=== PATIENT | female | born 1950 | race Caucasian/White ===

== ENCOUNTER 2022-05-23 09:54 | Emergency (ER) | payer MEDICARE, MEDICAID ==
[~2022-05-23] VITALS: Ht 167.6 cm; Wt 63.5 kg
[~2022-05-23 09:54] MED LIST: ANTIVERT/2525 MG PO; ASPIRIN CHEWABL81 M1 PO; CARAFATE1 G1 PO; CARDIZEM CD240 MG PO; CELEBREX200 MG PO; CIPRO250 MG PO; CIPRO500 MG PO; CIPROFLOXACIN500 MG PO; COZAAR100 MG PO; COZAAR50 MG PO; CRESTOR10 MG PO; CRESTOR20 MG PO; DARVOCET N 1001 TAB PO; DAYPRO600 M1 PO; DILTIAZEM HYDR240 M1 PO; DIOVAN80 MG PO; EES400 MG PO; EVISTA60 MG PO; FIORICET 325 MG1 TAB PO; FLEXERIL5 MG PO; Fiorinal,Butalb1 TAB PO; GABAPENTIN300 MG PO; HYDROCODONE BIT1 T11 PO; K-DUR 2020 MEQ PO; LEVAQUIN750 MG PO; LOPRESSOR25 MG PO; METOPROLOL50 MG PO; MOTRIN800 MG PO; NEURONTIN300 MG; NEURONTIN300 MG PO; NO LIST; NORVASC2.5 MG PO; OMEPRAZOLE40 MG PO; OSCAL,OYSTER S500 MG PO; PERCOCET 325 MG1 TA2 PO; PRAVACHOL40 MG PO; PRAVASTATIN SOD40 MG PO; PREDNISONE10 MG PO; PRILOSEC40 MG PO; PROAIR HFA0.09 MG/AC INH; PYRIDIUM200 MG PO; ROBAXIN750 MG PO; TRAMADOL HCL50 MG PO; TYLENOL ES500 MG PO; TYLENOL W/CODEI1 TA2 PO; TYLENOL325 M1 PO; ULTRAM100 MG PO; ULTRAM50 MG PO; VALIUM5 MG PO; VENTOLIN H0.09 MG/AC INH; VICODIN 5/500 505 MG PO; VICODIN 500 MG-1 TAB PO; ZETIA10 MG PO; ZITHROMAX Z PA250 MG PO; Zofran4 MG PO
[2022-05-23 10:03] VITALS: BP 132/86
[2022-05-23] MEDS ORDERED: DECADRON4 MG PO (11:40)
[2022-05-23] MEDS ORDERED: ORPHENADRINE C100 M1 PO (11:41)
== END 2022-05-23 12:25 | disposition home or self-care (01) ==
LOC: ED 09:54
DX: G89.29 Other chronic pain (principal); M54.50 Low back pain, unspecified; Z88.0 Allergy status to penicillin; Z88.8 Allergy status to other drugs, medicaments and biological substances; Z79.899 Other long term (current) drug therapy; Z90.49 Acquired absence of other specified parts of digestive tract; Z95.1 Presence of aortocoronary bypass graft

== ENCOUNTER 2022-10-22 16:30 | Emergency (ER) | payer OTHER, MEDICAID ==
[~2022-10-22] VITALS: Ht 160 cm; Wt 64.4 kg
[~2022-10-22 16:30] MED LIST changes: +DECADRON4 MG PO; +DOXYCYCLINE HY100 M3 PO; +Imdur SA60 MG PO; +LASIX40 MG PO; +METOPROLOL SUCC25 M2 PO; +ORPHENADRINE C100 M1 PO; +PERCOCET 5-3251 EACH PO; +PHARMASSURE V500 MCG PO; +VITAMIN D350 MC2 GT
[2022-10-22 17:28] LABS: BASO # 0.1 10*3/uL (0.0-0.1); EOS # 0.2 10*3/uL (0.0-0.4); EOS % 3.3 % (1.0-4.0); LYMPH # 1.5 10*3/uL (1.3-4.4); LYMPH % 25.2 % (27.0-41.0); MEAN CELL VOLUME 92.2 fl (81.0-99.0); MEAN CORPUSCULAR HGB 28.5 pg (27.0-31.0); MEAN CORPUSCULAR HGB CONC 30.9 g/dl (33.0-37.0); MEAN PLATELET VOLUME 10.7 fl (9.6-12.3); MONO # 0.6 10*3/uL (0.1-1.0); MONO % 9.5 % (3.0-9.0); NEUT # 3.6 10*3/uL (2.3-7.9); NEUT % 60.7 % (47.0-73.0); PLATELET COUNT AUTOMATED 190 10*3/uL (130-400); RED BLOOD COUNT 3.47 10*6/uL (4.10-5.10); RED CELL DISTRI WIDTH 15.8 % (0-14.5)
[2022-10-22 17:30] VITALS: BP 164/95
[2022-10-22 17:40] LABS: ACT PARTIAL THROMBO TIME 25.6 SECONDS (20.0-32.1)
[2022-10-22 17:50] LABS: ALKALINE PHOSPHATASE 167 U/L (46-116); BUN 27 mg/dl (9-23); CHLORIDE 114 mmol/L (98-107); LIPASE 46 U/L (12-53); POTASSIUM 4.4 mmol/L (3.4-5.1); SGPT/ALT 7 U/L (10-49)
[2022-10-22 18:29] LABS: BILIRUBIN Negative (Negative); BLOOD Negative (Negative); CLARITY Clear (Clear); COLOR Yellow (Yellow); GLUCOSE Negative (Negative); KETONE Negative (Negative); LEUKO ESTERASE Negative (Negative); NITRITE Negative (Negative); PH 5.5 (4.5-8.0); UROBILINOGEN 0.2 E.U./dl (0.0-1.0)
[2022-10-22 19:18] LABS: RBC 0-2 rbc/hpf (0-2); WBC 0-2 wbc/hpf (0-5)
== END 2022-10-22 22:38 | disposition home or self-care (01) ==
LOC: ED 16:30
PROVIDERS: Emergency Medicine
DX: N20.9 Urinary calculus, unspecified (principal); N17.9 Acute kidney failure, unspecified; D64.9 Anemia, unspecified; I71.40 Abdominal aortic aneurysm, without rupture, unspecified; Z88.0 Allergy status to penicillin; Z88.8 Allergy status to other drugs, medicaments and biological substances; Z88.6 Allergy status to analgesic agent; Z79.899 Other long term (current) drug therapy; Z90.49 Acquired absence of other specified parts of digestive tract; Z90.710 Acquired absence of both cervix and uterus; Z98.890 Other specified postprocedural states; F17.210 Nicotine dependence, cigarettes, uncomplicated

== ENCOUNTER 2022-11-10 11:51 | Emergency (ER) | payer OTHER ==
[~2022-11-10] VITALS: Wt 62.1 kg
[2022-11-10 12:07] VITALS: BP 183/94
[2022-11-10 13:27] LABS: BILIRUBIN Negative (Negative); BLOOD Negative (Negative); CLARITY Clear (Clear); COLOR Yellow (Yellow); GLUCOSE Negative (Negative); KETONE Negative (Negative); LEUKO ESTERASE Trace (Negative); NITRITE Negative (Negative); PH 5.5 (4.5-8.0); UROBILINOGEN 0.2 E.U./dl (0.0-1.0)
[2022-11-10 13:35] LABS: ALKALINE PHOSPHATASE 134 U/L (46-116); BUN 14 mg/dl (9-23); CHLORIDE 114 mmol/L (98-107); POTASSIUM 4.4 mmol/L (3.4-5.1); TOTAL PROTEIN 6.7 gm/dL (6.0-8.0)
[2022-11-10 13:37] LABS: SGPT/ALT < 7 U/L (10-49)
[2022-11-10 14:21] LABS: EOS # 0.1 10*3/uL (0.0-0.4); EOS % 3.4 % (1.0-4.0); LYMPH # 1.3 10*3/uL (1.3-4.4); LYMPH % 31.4 % (27.0-41.0); MEAN CELL VOLUME 94.2 fl (81.0-99.0); MEAN CORPUSCULAR HGB 28.5 pg (27.0-31.0); MEAN CORPUSCULAR HGB CONC 30.2 g/dl (33.0-37.0); MEAN PLATELET VOLUME 11.3 fl (9.6-12.3); MONO # 0.5 10*3/uL (0.1-1.0); MONO % 11.5 % (3.0-9.0); NEUT # 2.1 10*3/uL (2.3-7.9); NEUT % 52.5 % (47.0-73.0); PLATELET COUNT AUTOMATED 200 10*3/uL (130-400); RED BLOOD COUNT 3.62 10*6/uL (4.10-5.10); RED CELL DISTRI WIDTH 15.4 % (0-14.5); WHITE BLOOD COUNT 4.1 10*3/uL (4.8-10.8)
[2022-11-10 14:31] LABS: HEMATOCRIT 34.2 % (37.0-47.0)
[2022-11-10] MEDS ORDERED: FLOMAX0.4 MG PO (15:19)
== END 2022-11-10 16:32 | disposition home or self-care (01) ==
LOC: ED 11:51
PROVIDERS: Physician Assistant
DX: N20.0 Calculus of kidney (principal); I10 Essential (primary) hypertension; F41.9 Anxiety disorder, unspecified; F32.A Depression, unspecified; E78.00 Pure hypercholesterolemia, unspecified; K21.9 Gastro-esophageal reflux disease without esophagitis; M19.90 Unspecified osteoarthritis, unspecified site; Z88.0 Allergy status to penicillin; Z88.6 Allergy status to analgesic agent; Z88.8 Allergy status to other drugs, medicaments and biological substances; Z90.49 Acquired absence of other specified parts of digestive tract; Z90.710 Acquired absence of both cervix and uterus; Z98.890 Other specified postprocedural states; F17.210 Nicotine dependence, cigarettes, uncomplicated

== ENCOUNTER 2023-02-12 11:42 | Emergency (ER) | payer OTHER ==
[~2023-02-12] VITALS: Ht 167.6 cm; Wt 58.5 kg
[~2023-02-12 11:42] MED LIST changes: +AMLODIPINE BESY10 MG PO; +ATORVASTATIN CA20 M1 PO; +ATORVASTATIN CA40 M1 PO; +CLOPIDOGREL75 MG PO; +FLOMAX0.4 MG PO; +Lopressor25 MG PO; +OXYBUTYNIN5 MG PO; +PANTOPRAZOLE SO40 MG PO; +VANCOMYCIN HYDRO1 GM IV
[2023-02-12 13:38] LABS: HEMATOCRIT 29.7 % (37.0-47.0); MEAN CELL VOLUME 97.1 fl (81.0-99.0); MEAN CORPUSCULAR HGB 28.4 pg (27.0-31.0); MEAN CORPUSCULAR HGB CONC 29.3 g/dl (33.0-37.0); MEAN PLATELET VOLUME 10.9 fl (9.6-12.3); PLATELET COUNT AUTOMATED 185 10*3/uL (130-400); RED BLOOD COUNT 3.06 10*6/uL (4.10-5.10); RED CELL DISTRI WIDTH 15.2 % (0-14.5); WHITE BLOOD COUNT 9.9 10*3/uL (4.8-10.8)
[2023-02-12 13:42] LABS: MANUAL DIFF REFLEX YES
[2023-02-12 14:01] LABS: POTASSIUM 5.6 mmol/L (3.4-5.1)
[2023-02-12 14:04] LABS: TOTAL CELLS COUNTED 100 #CELLS
[2023-02-12 14:05] LABS: BURR CELLS FEW; OVALOCYTES FEW; PLATELET SUFFICIENCY NORMAL (NORMAL)
[2023-02-12 14:09] LABS: ACT PARTIAL THROMBO TIME 23.6 SECONDS (20.0-32.1)
[2023-02-12 17:46] VITALS: BP 118/69
== END 2023-02-12 18:30 | disposition short-term general hospital (02) ==
LOC: ED 11:42
PROVIDERS: Physician Assistant
DX: I24.9 Acute ischemic heart disease, unspecified (principal); I50.9 Heart failure, unspecified; I11.0 Hypertensive heart disease with heart failure; R77.8 Other specified abnormalities of plasma proteins; K21.9 Gastro-esophageal reflux disease without esophagitis; I13.0 Hypertensive heart and chronic kidney disease with heart failure and stage 1 through stage 4 chronic kidney disease, or unspecified chronic kidney disease; N18.9 Chronic kidney disease, unspecified; J44.9 Chronic obstructive pulmonary disease, unspecified; I25.10 Atherosclerotic heart disease of native coronary artery without angina pectoris; F41.9 Anxiety disorder, unspecified; F32.A Depression, unspecified; E78.00 Pure hypercholesterolemia, unspecified; Z95.5 Presence of coronary angioplasty implant and graft; Z88.0 Allergy status to penicillin; Z88.8 Allergy status to other drugs, medicaments and biological substances; Z88.6 Allergy status to analgesic agent; Z90.49 Acquired absence of other specified parts of digestive tract; Z90.710 Acquired absence of both cervix and uterus; Z98.890 Other specified postprocedural states; F17.200 Nicotine dependence, unspecified, uncomplicated